=== PATIENT | male | born 1955 | race Caucasian/White ===

== ENCOUNTER 2017-10-12 05:21 | Emergency (ER) | payer OTHER ==
[2017-10-12] MEDS: traMADol HCL 50 MG TAB PO (05:52)
== END 2017-10-12 06:48 | disposition home or self-care (01) ==
LOC: PHED 05:21
DX: M25.552 Pain in left hip (principal); M19.90 Unspecified osteoarthritis, unspecified site; N40.0 Benign prostatic hyperplasia without lower urinary tract symptoms; F32.9 Major depressive disorder, single episode, unspecified; F12.90 Cannabis use, unspecified, uncomplicated; Z79.899 Other long term (current) drug therapy; Z96.642 Presence of left artificial hip joint
CPT/HCPCS: 73502; 99283